=== PATIENT | male | born 1970 | race Caucasian/White ===

== ENCOUNTER 2016-06-12 11:17 | Emergency (ER) | payer MEDICAID, OTHER ==
[~2016-06-12] VITALS: Ht 177.8 cm; Wt 90.7 kg
[2016-06-12 11:28] VITALS: BP_SYST 129
--- NOTE | 2016-06-12 11:31 | NUR ---
Patient triaged and placed in waiting room. VSS and patient appears in no acute distress at this time. Accompanied by self, awaiting available bed, and MD notified of need for MSE.
--- NOTE | 2016-06-12 12:14 | NUR ---
Pt being evaluated by Dr. Bosch in triage room.
--- NOTE | 2016-06-12 12:15 | NUR ---
Patient given written and verbal discharge instructions and verbalizes understanding. ER MD discussed with patient the results and treatment provided. Patient in stable condition. ID arm band removed. No Rx given. Patient educated on pain management and to follow up with PMD. Pain Scale 0/10. Opportunity for questions provided and answered.
[2016-06-12 12:16] VITALS: BP_SYST 129
== END 2016-06-12 12:16 | disposition home or self-care (01) ==
LOC: SED 11:17
DX: Z00.8 Encounter for other general examination (principal); F33.9 Major depressive disorder, recurrent, unspecified
CPT/HCPCS: 99281

== ENCOUNTER 2016-06-14 17:57 | Emergency (ER) | payer OTHER ==
[~2016-06-14] VITALS: Ht 177.8 cm; Wt 91.6 kg
[2016-06-14 18:34] VITALS: BP_SYST 124
--- NOTE | 2016-06-14 19:20 | NUR ---
Patient to [facility] for evaluation. Report given to Yolanda VICTOR.
--- NOTE | 2016-06-14 19:25 | NUR ---
ER ISRAEL Eastman in the hallway evaluating the patient
--- NOTE | 2016-06-14 19:27 | NUR ---
Patient to ER C/O severe sharp pain 10/10 right heel with a small superficial puncture wound, no reddness or other signs of infection, patient states that about 4 days ago he stepped on broken glass, pain since then. AAOx4, unlabored rbeathing, no signs of acute distress.
[2016-06-14] MEDS ORDERED: IBUPROFEN 800 MG TABLET PO ONE (19:30)
[2016-06-14] MEDS ORDERED: DIPH-TET-PERTUS Vaccine 0.5 ML VIAL (ADACEL) I.M. ONE (19:30)
--- NOTE | 2016-06-14 20:34 | NUR ---
Patient back from CT via wheelchair.
[2016-06-14] MEDS ORDERED: HYDROcodone/ACETAMIN 5-325 MG TAB (NORCO/ VICODIN) PO ONE (21:00)
--- NOTE | 2016-06-14 21:43 | NUR ---
Hard shoe applied to right foot
[2016-06-14] MEDS ORDERED: BACITRACIN 1 GM OINT TP ONE (22:00)
[2016-06-14 22:09] VITALS: BP_SYST 121
--- NOTE | 2016-06-14 22:09 | NUR ---
Patient given written and verbal discharge instructions and verbalizes understanding. ER FENCE INSTALLER Raiza discussed with patient the results and treatment provided. Patient in stable condition. ID arm band removed. Rx of bacitracin, tylenol/codeine, motrin given. Patient educated on pain management and to follow up with PMD. Pain Scale 0/10. Opportunity for questions provided and answered.
== END 2016-06-14 22:09 | disposition home or self-care (01) ==
LOC: SED 17:57
DX: S91.311A Laceration without foreign body, right foot, initial encounter (principal); F43.10 Post-traumatic stress disorder, unspecified; F33.9 Major depressive disorder, recurrent, unspecified; W22.8XXA Striking against or struck by other objects, initial encounter; Y93.01 Activity, walking, marching and hiking; Y92.89 Other specified places as the place of occurrence of the external cause; Y99.8 Other external cause status
CPT/HCPCS: 73700-TC; 90715; 99284

== ENCOUNTER 2016-06-22 19:33 | Emergency (ER) | payer OTHER ==
[~2016-06-22] VITALS: Ht 177.8 cm; Wt 91.6 kg
[2016-06-22 19:33] VITALS: BP 128/80; PULSE 89; RESP 20; TEMP 99.8; O2SAT 96
--- NOTE | 2016-06-22 20:39 | NUR ---
Patient to ER bed 6 to gown for evaluation. Side rails up. Report given to VALENTE Cohen.
--- NOTE | 2016-06-22 20:43 | NUR ---
Patient came in the ER accompanied by significant other complaining of bleeding when coughing. Pt's cough started 2 days ago and the bleeding started this morning. Pt stated that he can taste the blood. Denies n/v/d or headache. Afebrile. No acute distress or SOB noted at this time.
--- NOTE | 2016-06-22 20:55 | NUR ---
ER at bedside examining patient.
[2016-06-22 21:44] VITALS: BP 125/86; PULSE 88; RESP 19; TEMP 99.5; O2SAT 96
--- NOTE | 2016-06-22 21:44 | NUR ---
Patient given written and verbal discharge instructions and verbalizes understanding. ER MD Dr. Bergeron discussed with patient the results and treatment provided. Patient in stable condition. ID arm band removed. Rx of Prednisone 20 mg tab and [place] 5/325 mg given. Patient educated on pain management and to follow up with PMD. Pain Scale 4/10. Opportunity for questions provided and answered.
== END 2016-06-22 21:44 | disposition home or self-care (01) ==
LOC: SED 19:33
DX: J02.9 Acute pharyngitis, unspecified (principal); F31.9 Bipolar disorder, unspecified; F43.10 Post-traumatic stress disorder, unspecified; Z98.890 Other specified postprocedural states
CPT/HCPCS: 99283

== ENCOUNTER 2016-10-07 11:45 | Emergency (ER) | payer SELFPAY ==
[~2016-10-07] VITALS: Ht 177.8 cm; Wt 88.5 kg
[2016-10-07 11:52] VITALS: BP_SYST 127
[2016-10-07 12:00] VITALS: BP_SYST 118
[2016-10-07] MEDS ORDERED: BACITRACIN 1 GM OINT TP ONE (12:45)
[2016-10-07 14:23] VITALS: BP_SYST 118
== END 2016-10-07 14:23 | disposition home or self-care (01) ==
LOC: SED 11:45
DX: S60.022A Contusion of left index finger without damage to nail, initial encounter (principal); F32.9 Major depressive disorder, single episode, unspecified; F43.10 Post-traumatic stress disorder, unspecified; W22.8XXA Striking against or struck by other objects, initial encounter; Y93.89 Activity, other specified; Y92.89 Other specified places as the place of occurrence of the external cause; Y99.8 Other external cause status
CPT/HCPCS: 99284

== ENCOUNTER 2018-07-29 21:46 | Emergency (ER) | payer MEDICAID ==
[~2018-07-29] VITALS: Ht 175.3 cm; Wt 81.6 kg
[2018-07-29 21:50] VITALS: BP_SYST 133
[2018-07-29] MEDS ORDERED: KETOROLAC TROMETHAMINE 60 MG/2 ML VIAL IM ONE (22:45)
[2018-07-30 01:15] VITALS: BP_SYST 128
== END 2018-07-30 01:15 | disposition home or self-care (01) ==
LOC: SED 21:46
DX: S93.401A Sprain of unspecified ligament of right ankle, initial encounter (principal); M54.5 Low back pain; R03.0 Elevated blood-pressure reading, without diagnosis of hypertension; F32.9 Major depressive disorder, single episode, unspecified; F43.10 Post-traumatic stress disorder, unspecified; Z88.1 Allergy status to other antibiotic agents; Z88.8 Allergy status to other drugs, medicaments and biological substances; X58.XXXA Exposure to other specified factors, initial encounter; Y93.67 Activity, basketball; Y92.89 Other specified places as the place of occurrence of the external cause; Y99.8 Other external cause status
CPT/HCPCS: 72100; 73610; 96372; 99283; J1885

== ENCOUNTER 2019-02-27 14:07 | Emergency (ER) | payer MEDICAID ==
[~2019-02-27] VITALS: Ht 177.8 cm; Wt 96.2 kg
[2019-02-27 14:29] VITALS: BP_SYST 125
--- NOTE | 2019-02-27 14:37 | NUR ---
Patient to ER bed ch1 for evaluation. Side rails up.
--- NOTE | 2019-02-27 14:45 | NUR ---
HUSSEIN Reinoso at bedside examining patient.
[2019-02-27] MEDS ORDERED: HYDROcodone/ACETAMIN 5-325 MG TAB (NORCO/ VICODIN) PO ONE (15:00)
--- NOTE | 2019-02-27 15:03 | NUR ---
Pt AAOx4 ambulated into ED c/o R ankle pain s/p jumping on trampoline yesterday. Pt reports he was seen at [facility], where his radiology reports were negative. Pt has not filled RX of Morphine and Vale, but continue to feel pain to ankle and neck. No deformites noted. No other injuries/complaints per pt/noted. Will continue to monitor.
[2019-02-27 15:36] VITALS: BP_SYST 125
--- NOTE | 2019-02-27 15:36 | NUR ---
Patient given written and verbal discharge instructions and verbalizes understanding. ER MD discussed with patient the results and treatment provided. Patient in stable condition. ID arm band removed. Rx of Naoproxen given. Patient educated on pain management and to follow up with PMD. Pain Scale 0/10 Opportunity for questions provided and answered. Medication side effect fact sheet provided.
== END 2019-02-27 15:38 | disposition home or self-care (01) ==
LOC: SED 14:07
DX: S93.401A Sprain of unspecified ligament of right ankle, initial encounter (principal); S16.1XXA Strain of muscle, fascia and tendon at neck level, initial encounter; M54.5 Low back pain; F43.10 Post-traumatic stress disorder, unspecified; Z88.6 Allergy status to analgesic agent; Z88.8 Allergy status to other drugs, medicaments and biological substances; W18.39XA Other fall on same level, initial encounter; Y93.39 Activity, other involving climbing, rappelling and jumping off; Y92.89 Other specified places as the place of occurrence of the external cause; Y99.8 Other external cause status
CPT/HCPCS: 99283